=== PATIENT | male | born 1945 | race Caucasian/White ===

== ENCOUNTER 2023-06-10 14:33 | Emergency (ER) | payer MEDICARE, SELFPAY ==
[2023-06-10] VITALS (17 sets, daily range): BP systolic 124–184; BP diastolic 57–79; PULSE 48–65; RESP 14–23; TEMP 36.4; O2SAT 93–97
--- NOTE | 2023-06-10 14:46 | ED_ITS ---
HPI - General Adult General Chief complaint: Altered Mental Status Stated complaint: LOC x 15 min Time Seen by Provider: 06/10/23 14:41 Source: patient, EMS and other (Friend) Mode of arrival: EMS History of Present Illness HPI narrative: Patient is a 78-year-old male. He was with a couple other friends sitting at a table at the local [place]. They had just finished eating. There is a friend here at bedside he was with him at the time. His friend stated that he was talking with the other individual at the table and when they looked over to try to let the patient know that it was time to leave they for difficult time waking him up. They are unsure exactly how long that he was ?unconscious? but it could have been as long as 15 minutes. There was no trauma. EMS found the patient have a blood sugar in the 60s. Also found found him to be hypotensive with a systolic blood pressure in the 70s. He did receive glucose by EMS prior to arrival. His blood sugar now is greater than 100. His friend at bedside states that he thinks that the patient is acting normal. The patient does not know the events that brought him here to the ER. There was no reported seizure activity. Related Data Allergies Allergy/AdvReac Type Severity Reaction Status Date / Time No Known Drug Allergies Allergy Verified 06/10/23 14:43 Review of Systems Review of Systems ROS Unobtainable: All systems reviewed & are unremarkable except as noted in HPI and below Exam Initial Vital Signs Initial Vital Signs: Vital Signs Temperature 97.6 F 06/10/23 14:37 Pulse Rate 62 06/10/23 14:37 Respiratory Rate 17 06/10/23 14:37 Blood Pressure 132/62 06/10/23 14:37 Pulse Oximetry 94 06/10/23 14:37 Oxygen Delivery Method Room Air 06/10/23 14:37 HENMT Head: normal to inspection and normocephalic Resp Effort & Inspection: normal respiratory effort Auscultation: clear to auscultation bilaterally Cardio Rate: regular rate Rhythm: regular rhythm GI Inspection: normal to inspection and non-distended Skin General: no rashes or lesions noted Other: Diaphoresis Neuro Other: Patient is alert to place and person but does not know the year. Does not know his age but does know the year he was born. He can move all 4 extremities equally. Sensation is intact bilateral in his equal. He does not have any slurred speech. Extrem General: normal to inspection and capillary refill normal Course Orders Ordered: ED Orders 06/10/23 14:41 Complete Blood Count AUTO DIFF Stat Comprehensive Metabolic Panel Stat Ethanol (ETOH) Stat Lipase Stat EKG-12 Lead Stat 06/10/23 15:04 CT head/brain wo con Stat Discontinued Medications Sodium Chloride (Normal Saline 0.9%) 500 mls @ 1,000 mls/hr IV BOLUS ONE Stop: 06/10/23 17:05 Last Infusion: 06/10/23 17:32 Dose: 0 mls/hr Documented By: Admin: 06/10/23 16:39 Dose: 1,000 mls/hr Documented By: JESSI Vital Signs Vital signs: Vital Signs - 8 hr 06/10/23 14:37 06/10/23 14:44 06/10/23 14:44 Temperature 97.6 F Pulse Rate 62 63 Respiratory Rate 17 18 Blood Pressure 132/62 124/59 L Pulse Oximetry 94 95 Oxygen Delivery Method Room Air Room Air 06/10/23 15:03 06/10/23 15:04 06/10/23 15:04 Temperature Pulse Rate 48 L 62 Respiratory Rate 15 Blood Pressure 157/70 H Pulse Oximetry 96 96 Oxygen Delivery Method 06/10/23 15:15 06/10/23 15:15 06/10/23 15:30 Temperature Pulse Rate 58 L Respiratory Rate 15 Blood Pressure 151/70 H 176/79 H Pulse Oximetry 93 Oxygen Delivery Method 06/10/23 15:30 06/10/23 15:45 06/10/23 15:45 Temperature Pulse Rate 64 62 Respiratory Rate 18 17 Blood Pressure 169/79 H Pulse Oximetry 95 96 Oxygen Delivery Method 06/10/23 16:00 06/10/23 16:00 06/10/23 16:09 Temperature Pulse Rate 63 65 Respiratory Rate 16 15 Blood Pressure 169/74 H Pulse Oximetry 96 97 Oxygen Delivery Method 06/10/23 16:09 06/10/23 16:15 06/10/23 16:15 Temperature Pulse Rate 59 L Respiratory Rate 16 Blood Pressure 152/67 H 150/60 H Pulse Oximetry 95 Oxygen Delivery Method 06/10/23 16:31 06/10/23 16:31 06/10/23 16:45 Temperature Pulse Rate 64 Respiratory Rate 23 Blood Pressure 124/69 153/71 H Pulse Oximetry 97 Oxygen Delivery Method 06/10/23 16:45 06/10/23 17:00 06/10/23 17:00 Temperature Pulse Rate 59 L 57 L Respiratory Rate 15 15 Blood Pressure 165/69 H Pulse Oximetry 95 95 Oxygen Delivery Method 06/10/23 17:15 06/10/23 17:15 Temperature Pulse Rate 56 L Respiratory Rate 14 Blood Pressure 146/57 H Pulse Oximetry 95 Oxygen Delivery Method Medical Decision Making Lab Data 06/10/23 14:41 06/10/23 14:41 Labs: Lab Results 06/10/23 06/10/23 Range/Units 14:41 14:41 WBC 10.2 (4.5-11.0) X10^3/uL RBC 4.24 L (4.5-5.9) X10^6/uL Hgb 13.9 (13.5-17.5) g/dL Hct 40.1 L (41-53) % MCV 94.7 (80-100) fL MCH 32.9 (26-34) PG MCHC 34.7 (30-36) % RDW 13.1 (11.6-14.8) % Plt Count 178 (150-400) X10^3/uL Neut % (Auto) 71.9 (50-75) % Lymph % (Auto) 17.7 L (25-40) % [place] % (Auto) 8.5 (3-14) % Eos % (Auto) 1.3 L (2-4) % Baso % (Auto) 0.6 (0-2) % Neut # (Auto) 7300 H (8489-2099) /uL Lymph # (Auto) 1800 (5880-2996) /uL [place] # (Auto) 900 (0-900) /uL Eos # (Auto) 100 (0-450) /uL Baso # (Auto) 100 (0-100) /uL Sodium 139 (137-145) mmol/L Potassium 3.8 (3.4-5.1) mmol/L Chloride 104 (98-107) mmol/L Carbon Dioxide 26 (22-32) mmol/L BUN 38 H (9-20) mg/dL Creatinine 1.76 H (0.66-1.25) mg/dL Estimated GFR 39 L (>60) mL/min BUN/Creatinine Ratio 21.6 (6-22) Glucose 93 (80-110) mg/dL Calcium 9.3 (8.4-10.2) mg/dL Total Bilirubin 0.9 (0.2-1.3) mg/dL AST 30 (17-59) IU/L ALT 29 (<50) IU/L Alkaline Phosphatase 67 (38-126) U/L Total Protein 7.3 (6.3-8.2) g/dL Albumin 3.8 (3.5-5.0) g/dL Globulin 3.5 (1.7-4.1) g/dL Albumin/Globulin Ratio 1.1 (1.0-2.8) Lipase 69 (23-300) U/L Ethyl Alcohol < 10 ( - 10) mg/dL Point of Care Testing Glucose POC 160 Point of care testing: Point of Care Testing Glucose POC [address] scan - head: Radiologist's Impression: PROCEDURE:? CT HEAD/BRAIN WO CON ? INDICATIONS:? Loss of consciousness ? TECHNIQUE:? Noncontrast 4.5 mm thick angled axial sections acquired from the foramen magnum to the vertex, with coronal and sagittal reformats.? For radiation dose reduction, the following was used:? automated exposure control, adjustment of mA and/or kV according to patient size.? ? COMPARISON:? None. ? FINDINGS:? Image quality:? Excellent.? ? CSF spaces:? Basal cisterns are patent.? No extra-axial fluid collections.? The ventricles are symmetric in size and shape.? ? Brain:? No intracranial bleeds or masses.? There is cerebral volume loss for age, with resultant ventricular and sulcal prominence.? There are periventricular and deep white matter chronic small vessel ischemic changes.? Focal volume loss can be seen involving the right occipital lobe.? There is intracranial internal carotid artery atherosclerosis. ?Symmetric calcification can be seen involving the basal ganglia, which is considered to be normal for age. ? Skull and face:? Calvarium and visualized facial bones appear intact, without suspicious lesions.? ? Sinuses:? Mucous retention cysts can be seen within the inferior left maxillary sinus.? There is a degree of calcification seen within the inferior right maxillary sinus, seen on the inferior-most image, as on series 3, image 1.? The paranasal sinuses otherwise appear clear. No abnormal fluid is seen within the mastoid air cells. ? ? IMPRESSION:? No acute intracranial process is seen. ? 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 ? Focal maxillary sinus disease noted. ECG Data Attestation: I personally reviewed and interpreted this ECG as follows: Interpretation: Sinus rhythm Ventricular rate is 63 Normal axis First-degree AV block FL interval 222 milliseconds Normal QRS No ST T wave changes MDM Narrative Medical decision making narrative: Patient's mentation did seem to improve. His arrived in the emergency department and stated that he was back to baseline. I have low suspicion for CVA or TIA. He stated that he took 20 units of insulin just prior to eating and I suspect that despite the intake that he had he became hypoglycemic from this. His states that this has happened to him in the past. The patient states he feels much better after fluids. Will discharge patient home. Were given return precautions. They expressed understanding and agreement. Discharge Plan Departure Patient Disposition: Home Clinical Impression: Hypoglycemia Instructions: DI for Hypoglycemia Activity Restrictions/Additional Instructions: I do recommend that you continue to take all of your medications as directed and continue to take your blood sugar at home on a regular basis. Return to the emergency department for new or worsening symptoms. Stand Alone Forms: Patient Portal/API
[2023-06-10 14:52] LABS: Add Manual Diff / Slide Review NO; Basophils Absolute Auto 100 /uL (0-100); Basophils Percent Auto 0.6 % (0-2); Eosinophils Absolute Auto 100 /uL (0-450); Eosinophils Percent Auto 1.3 % (2-4); Hematocrit 40.1 % (41-53); Hemoglobin 13.9 g/dL (13.5-17.5); Lymphocytes Absolute Auto 1800 /uL (1100-4500); Lymphocytes Percent Auto 17.7 % (25-40); Mean Corpuscular HGB Conc 34.7 % (30-36); Mean Corpuscular Hemoglobin 32.9 PG (26-34); Mean Corpuscular Volume 94.7 fL (80-100); Monocytes Absolute Auto 900 /uL (0-900); Monocytes Percent Auto 8.5 % (3-14); Neutrophils Absolute Auto 7300 /uL (1500-7000); Neutrophils Percent Auto 71.9 % (50-75); Platelet Count 178 X10^3/uL (150-400); Red Blood Cell Count 4.24 X10^6/uL (4.5-5.9); Red Cell Distribution Width 13.1 % (11.6-14.8); White Blood Cell Count 10.2 X10^3/uL (4.5-11.0)
--- NOTE | 2023-06-10 15:04 | DI.CT.S_ITS ---
PROCEDURE: CT HEAD/BRAIN WO CON INDICATIONS: Loss of consciousness TECHNIQUE: Noncontrast 4.5 mm thick angled axial sections acquired from the foramen magnum to the vertex, with coronal and sagittal reformats. For radiation dose reduction, the following was used: automated exposure control, adjustment of mA and/or kV according to patient size. COMPARISON: None. FINDINGS: Image quality: Excellent. CSF spaces: Basal cisterns are patent. No extra-axial fluid collections. The ventricles are symmetric in size and shape. Brain: No intracranial bleeds or masses. There is cerebral volume loss for age, with resultant ventricular and sulcal prominence. There are periventricular and deep white matter chronic small vessel ischemic changes. Focal volume loss can be seen involving the right occipital lobe. There is intracranial internal carotid artery atherosclerosis. Symmetric calcification can be seen involving the basal ganglia, which is considered to be normal for age. Skull and face: Calvarium and visualized facial bones appear intact, without suspicious lesions. Sinuses: Mucous retention cysts can be seen within the inferior left maxillary sinus. There is a degree of calcification seen within the inferior right maxillary sinus, seen on the inferior-most image, as on series 3, image 1. The paranasal sinuses otherwise appear clear. No abnormal fluid is seen within the mastoid air cells. IMPRESSION: No acute intracranial process is seen. Remote right [employer] WORKER territory infarction. Focal maxillary sinus disease noted. Dictated by: Maxi Rubi M.D. on 06/10/2023 at 14:07 Approved by: Maxi Rubi M.D. on 06/10/2023 at 14:09
[2023-06-10 15:07] LABS: Alanine Aminotransferase 29 IU/L (<50); Albumin 3.8 g/dL (3.5-5.0); Albumin Globulin Ratio 1.1 (1.0-2.8); Alkaline Phosphatase 67 U/L (38-126); Aspartate Aminotransferase 30 IU/L (17-59); BUN Creatinine Ratio 21.6 (6-22); Bilirubin Total 0.9 mg/dL (0.2-1.3); Blood Urea Nitrogen 38 mg/dL (9-20); Calcium 9.3 mg/dL (8.4-10.2); Carbon Dioxide 26 mmol/L (22-32); Chloride 104 mmol/L (98-107); Estimated Glomerular Filt Rate 39 mL/min (>60); Ethanol (ETOH) < 10 mg/dL; Globulin 3.5 g/dL (1.7-4.1); Glucose 93 mg/dL (80-110); HEMOLYSIS < 15 (0-50); Lipase 69 U/L (23-300); Potassium 3.8 mmol/L (3.4-5.1); Sodium 139 mmol/L (137-145); Total Protein 7.3 g/dL (6.3-8.2)
--- NOTE | 2023-06-10 15:33 | PC.NURSE ---
Pt states that he does not remember falling [place]. the pt states that the last thing he remembers is paying his tab and waking up to medics surrounding him. pt is unable to tell me today's date, the month or what year it is. pt denies any alcohol or substance use while at the casino. BG is 86.
--- NOTE | 2023-06-10 16:10 | PC.NURSE ---
pt ambulated approximately 100 ft. Shuffling gait but pt stated that is normal for him because he has neuropathy. Pt answers questions appropriately at this time.
[2023-06-10] MEDS: SODIUM CHLORIDE 0.9% 500 ML 1000 ML IV (16:39)
== END 2023-06-10 17:58 | disposition home or self-care (01) ==
PROVIDERS: Emergency Provider Emergency Medicine
DX: E16.2 Hypoglycemia, unspecified (principal)
CPT/HCPCS: 36415; 70450; 80053; 80320; 82962; 83690; 85025; 93005; 96360; 99284; 99285